=== PATIENT | female | born 1960 | race Two or more races ===

== ENCOUNTER 2022-04-30 15:51 | Inpatient (IN) | payer OTHER ==
[~2022-04-30] VITALS: Ht 162.6 cm; Wt 67.8 kg
[2022-04-30] MEDS ORDERED: SODIUM CHLORIDE 0.9% 3,000 ML IV ONE (17:00)
[2022-04-30] MEDS ORDERED: NOREPINEPHRINE 8 MG/250ML KIT 250 ML IV ONE (17:40)
[2022-04-30] MEDS ORDERED: InsuLIN R (HUMAN) 100 UNITS in SODIUM CHL 0.9% 99 ML IV SCH (18:45)
[2022-04-30] MEDS ORDERED: INSULIN LANTUS (GLARGINE) 1 /0.01ml (100units/ml) SC ONE (18:45)
[2022-04-30] MEDS ORDERED: DEXTROSE (50%) 50ML SYRG IV PRN ×3 (18:45→22:45)
[2022-04-30] MEDS ORDERED: cefTRIAXone 1GM/50ML D5W 50 ML IV ONE (18:45)
[2022-04-30 20:29] LABS: Basophils # (auto) 0 10 ^3/uL (0-0.2); Basophils % (auto) 0.2 % (0.0-2.0); Eosinophils # (auto) 0.3 10 ^3/uL (0-0.8); Hematocrit 32.6 % (36.0-46.0); Hemoglobin 11.2 g/dL (12.2-16.2); Lymphocytes # (auto) 0.5 10 ^3/uL (0.4-5.4); Mean Corpuscular Hgb Conc. 34.3 g/dL (32.0-36.0); Mean Corpuscular Volume 99.1 fL (80.0-100.0); Monocytes # (auto) 0.4 10 ^3/uL (0-1.3); Neutrophils # (auto) 4.1 10 ^3/uL (1.6-8.6); Neutrophils % (auto) 78.8 % (37.0-80.0); Red Blood Cells 3.29 10^6/uL (4.0-5.20); Red Cell Distribution Width 14.1 % (11.8-14.3); White Blood Cell 5.2 10^3/uL (4.4-10.8)
[2022-04-30] MEDS: ACCU-CHEK COMFORT CURVE STRIP VI SCH ×3 (20:33→23:54)
[2022-04-30 20:43] LABS: Albumin 1.7 g/dL (3.4-5.0); BUN/Creatinine Ratio 19.1
[2022-04-30 20:46] LABS: Bilirubin, Total 5.5 mg/dL (0.2-1.0); Total Protein 5.5 g/dL (6.4-8.2)
[2022-04-30 20:47] LABS: Lactic Acid w/Reflex 4.4 mmol/L (0.4-2.0)
[2022-04-30 20:53] LABS: Potassium 2.7 mmol/L (3.5-5.1)
[2022-04-30 22:04] LABS: Urine Bacteria NONE SEEN /hpf (None Seen); Urine Blood Negative /uL (Negative); Urine Specific Gravity 1.017 (1.001-1.035); Urine WBC 5 /hpf (0 - 5)
[2022-04-30] MEDS ORDERED: CALCIUM GLUC 1,000mg/50ml-NS 50 ML IV ONE (23:00)
[2022-04-30] MEDS ORDERED: ACETAMINOPHEN 325 MG TAB PO PRN (23:00)
[2022-04-30] MEDS ORDERED: POTASSIUM CHL 20 Meq TABLET PO ONE (23:00)
[2022-04-30] MEDS ORDERED: DOCUSATE SOD 100 MG CAP PO PRN (23:00)
[2022-04-30] MEDS ORDERED: NITROGLYCERIN 0.4 MG SL TAB SL PRN (23:00)
[2022-04-30] MEDS ORDERED: MORPHINE SULFATE INJ 2 MG/ml SYRG IV PRN (23:00)
[2022-04-30] MEDS ORDERED: HYDROcodone-ACET 5/325MG TAB PO PRN (23:00)
[2022-04-30] MEDS: NOREPINEPHRINE 8 MG/250ML KIT 250 ML IV SCH (23:04)
[2022-04-30] MEDS: SODIUM CHLORIDE 0.9% 1,000 ML IV SCH (23:08)
[2022-04-30] MEDS: POTASSIUM CHL 20MEQ/100ML 100 ML IV SCH (23:23)
[2022-04-30 23:36] LABS: Albumin 1.7 g/dL (3.4-5.0); BUN/Creatinine Ratio 20.2; Bilirubin, Total 5.3 mg/dL (0.2-1.0); Calcium 6.9 mg/dL (8.5-10.1); Total Protein 5.5 g/dL (6.4-8.2)
[2022-04-30] MEDS: ALBUMIN 25% 100 ML IV SCH (23:50)
[2022-04-30 23:51] LABS: Potassium 2.6 mmol/L (3.5-5.1)
[2022-05-01] VITALS (90 sets, daily range): BP systolic 90–133; BP diastolic 47–75
[2022-05-01] MEDS ORDERED: ACCU-CHEK COMFORT CURVE STRIP VI SCH
[2022-05-01] MEDS ORDERED: InsuLIN REG 1unit/0.01ml Soln (100units/ml) SC SCH
[2022-05-01] MEDS: InsuLIN REG 1unit/0.01ml Soln (100units/ml) SC SCH ×4 (00:47→18:00)
[2022-05-01] MEDS: POTASSIUM CHL 20MEQ/100ML 100 ML IV SCH (02:10)
[2022-05-01 05:23] LABS: Basophils # (auto) 0 10 ^3/uL (0-0.2); Basophils % (auto) 0.2 % (0.0-2.0); Eosinophils # (auto) 0.4 10 ^3/uL (0-0.8); Eosinophils % (auto) 5.7 % (0.0-7.0); Hematocrit 32.3 % (36.0-46.0); Hemoglobin 11.4 g/dL (12.2-16.2); Lymphocytes # (auto) 0.5 10 ^3/uL (0.4-5.4); Lymphocytes % (auto) 6.2 % (10.0-50.0); Mean Corpuscular Hemoglobin 34.4 pg (28.0-32.0); Mean Corpuscular Hgb Conc. 35.3 g/dL (32.0-36.0); Mean Corpuscular Volume 97.5 fL (80.0-100.0); Monocytes # (auto) 0.5 10 ^3/uL (0-1.3); Monocytes % (auto) 6.5 % (0.0-12.0); Neutrophils % (auto) 81.4 % (37.0-80.0); Nucleated Red Blood Cells % 0.1 %; Red Blood Cells 3.31 10^6/uL (4.0-5.20); Red Cell Distribution Width 14.5 % (11.8-14.3); White Blood Cell 7.3 10^3/uL (4.4-10.8)
[2022-05-01 05:42] LABS: Lactic Acid w/Reflex 3.2 mmol/L (0.4-2.0)
[2022-05-01 05:43] LABS: Potassium 3.6 mmol/L (3.5-5.1)
[2022-05-01 05:52] LABS: Albumin 2.2 g/dL (3.4-5.0); BUN/Creatinine Ratio 20.9; Bilirubin, Total 6.2 mg/dL (0.2-1.0); Calcium 7.7 mg/dL (8.5-10.1); Total Protein 5.8 g/dL (6.4-8.2)
[2022-05-01] MEDS: ACCU-CHEK COMFORT CURVE STRIP VI SCH ×3 (05:52→18:26)
[2022-05-01] MEDS: ALBUMIN 25% 100 ML IV SCH ×2 (06:04→15:00)
[2022-05-01] MEDS: ONDANSETRON HCL 4 MG/2 ML VIAL IV PRN (08:45)
[2022-05-01] MEDS ORDERED: FAMOTIDINE (10MG/ML) 2ML VL IV SCH (10:00)
[2022-05-01] MEDS ORDERED: INSULIN LANTUS (GLARGINE) 1 /0.01ml (100units/ml) SC SCH (10:00)
[2022-05-01] MEDS: cefTRIAXone 1GM/50ML D5W 50 ML IV SCH (10:06)
[2022-05-01] MEDS: SODIUM CHLORIDE 0.9% 1,000 ML IV SCH (15:35)
[2022-05-01] MEDS ORDERED: PANTOPRAZOLE 40 MG TAB PO ONE (16:15)
[2022-05-01] MEDS: NOREPINEPHRINE 8 MG/250ML KIT 250 ML IV SCH (17:45)
[2022-05-01] MEDS ORDERED: MULTIPLE VITAMIN TAB PO ONE (18:00)
[2022-05-01] MEDS ORDERED: THIAMINE HCL 100 MG TAB PO ONE (18:00)
[2022-05-01 18:51] LABS: INR 1.87 (0.9-1.15)
[2022-05-01] MEDS ORDERED: ENOXAPARIN SOD 40 MG/0.4 ML SYRINGE SC SCH (22:00)
[2022-05-02] VITALS (73 sets, daily range): BP systolic 75–146; BP diastolic 42–83
[2022-05-02] MEDS: LORazepam 2MG/ML-1ML VIAL IV PRN ×5 (01:00→22:22)
[2022-05-02] MEDS: InsuLIN REG 1unit/0.01ml Soln (100units/ml) SC SCH ×4 (01:01→18:39)
[2022-05-02] MEDS: ACCU-CHEK COMFORT CURVE STRIP VI SCH ×5 (06:00→23:29)
[2022-05-02 06:03] LABS: Hemoglobin 11.4 g/dL (12.2-16.2); Lymphocytes # (auto) 0.5 10 ^3/uL (0.4-5.4); Monocytes # (auto) 0.5 10 ^3/uL (0-1.3); Nucleated Red Blood Cells % 0.1 %
[2022-05-02 06:06] LABS: Basophils # (auto) 0 10 ^3/uL (0-0.2); Basophils % (auto) 0.2 % (0.0-2.0); Eosinophils # (auto) 0.2 10 ^3/uL (0-0.8); Eosinophils % (auto) 2.1 % (0.0-7.0); Lymphocytes % (auto) 6.2 % (10.0-50.0); Mean Corpuscular Hemoglobin 34.9 pg (28.0-32.0); Mean Corpuscular Hgb Conc. 35.6 g/dL (32.0-36.0); Mean Corpuscular Volume 98.1 fL (80.0-100.0); Monocytes % (auto) 5.6 % (0.0-12.0); Neutrophils % (auto) 85.9 % (37.0-80.0); Red Blood Cells 3.26 10^6/uL (4.0-5.20); Red Cell Distribution Width 14.6 % (11.8-14.3); White Blood Cell 8.1 10^3/uL (4.4-10.8)
[2022-05-02] MEDS: SODIUM CHLORIDE 0.9% 1,000 ML IV SCH ×3 (08:05→22:22)
[2022-05-02] MEDS ORDERED: QUEtiapine FUMARATE 25 MG TAB PO PRN (09:30)
[2022-05-02] MEDS ORDERED: VANCOMYCIN PER PHARMACY 0 MG IV SCH (09:45)
[2022-05-02] MEDS ORDERED: VANCOMYCIN 1GM/250ML 250 ML IV ONE (09:45)
[2022-05-02] MEDS ORDERED: SODIUM CHLORIDE 0.9% 1,000 ML IV ONE (10:00)
[2022-05-02] MEDS ORDERED: PANTOPRAZOLE 40 MG TAB PO SCH (10:00)
[2022-05-02] MEDS ORDERED: THIAMINE HCL 100 MG TAB PO SCH (10:00)
[2022-05-02] MEDS ORDERED: MULTIPLE VITAMIN TAB PO SCH (10:00)
[2022-05-02] MEDS ORDERED: INSULIN LANTUS (GLARGINE) 1 /0.01ml (100units/ml) SC SCH (10:00)
[2022-05-02 10:21] LABS: Albumin 2.5 g/dL (3.4-5.0); Calcium 7.9 mg/dL (8.5-10.1); Potassium 3.1 mmol/L (3.5-5.1)
[2022-05-02] MEDS: cefTRIAXone 1GM/50ML D5W 50 ML IV SCH (10:22)
[2022-05-02 10:24] LABS: BUN/Creatinine Ratio 16.7; Bilirubin, Total 6.7 mg/dL (0.2-1.0)
[2022-05-02 10:44] LABS: Basophils # (auto) 0 10 ^3/uL (0-0.2); Eosinophils # (auto) 0.2 10 ^3/uL (0-0.8); Hemoglobin 11.5 g/dL (12.2-16.2); Lymphocytes # (auto) 0.7 10 ^3/uL (0.4-5.4); Monocytes # (auto) 0.7 10 ^3/uL (0-1.3); Red Blood Cells 3.35 10^6/uL (4.0-5.20)
[2022-05-02 10:48] LABS: Basophils % (auto) 0.3 % (0.0-2.0); Hematocrit 33.2 % (36.0-46.0); Lymphocytes % (auto) 7.6 % (10.0-50.0); Mean Corpuscular Hemoglobin 34.4 pg (28.0-32.0); Mean Corpuscular Hgb Conc. 34.7 g/dL (32.0-36.0); Mean Corpuscular Volume 99.2 fL (80.0-100.0); Monocytes % (auto) 7.5 % (0.0-12.0); Neutrophils # (auto) 7.8 10 ^3/uL (1.6-8.6); Neutrophils % (auto) 82.6 % (37.0-80.0); Red Cell Distribution Width 14.5 % (11.8-14.3); White Blood Cell 9.4 10^3/uL (4.4-10.8)
[2022-05-02] MEDS: PANTOPRAZOLE 40 MG/10 ML VIAL INJ IV SCH (10:54)
[2022-05-02] MEDS: ENOXAPARIN SOD 40 MG/0.4 ML SYRINGE SC SCH (10:55)
[2022-05-02] MEDS: VANCOMYCIN 1GM/250ML 250 ML IV SCH (11:34)
[2022-05-02 11:58] LABS: % Iron Saturation 39.2 % (15-50)
[2022-05-02 12:14] LABS: Lactic Acid w/Reflex 2.5 mmol/L (0.4-2.0)
[2022-05-02] MEDS ORDERED: POTASSIUM CHL 20MEQ/100ML 100 ML IV ONE (19:15)
[2022-05-02] MEDS ORDERED: SODIUM CHLORIDE 0.9% 500 ML IV ONE (19:15)
[2022-05-03] VITALS (65 sets, daily range): BP systolic 78–160; BP diastolic 42–91
[2022-05-03] MEDS: LORazepam 2MG/ML-1ML VIAL IV PRN ×3 (00:33→18:17)
[2022-05-03] MEDS: MAGNESIUM SULFATE 1GM/100ML 100 ML IV SCH ×2 (02:31→03:42)
[2022-05-03] MEDS: VANCOMYCIN 1GM/250ML 250 ML IV SCH (05:10)
[2022-05-03 05:35] LABS: Mean Corpuscular Volume 99.3 fL (80.0-100.0)
[2022-05-03 05:37] LABS: Hematocrit 34.9 % (36.0-46.0); Hemoglobin 12.1 g/dL (12.2-16.2); Mean Corpuscular Hemoglobin 34.5 pg (28.0-32.0); Mean Corpuscular Hgb Conc. 34.8 g/dL (32.0-36.0); Red Blood Cells 3.51 10^6/uL (4.0-5.20); Red Cell Distribution Width 14.6 % (11.8-14.3); White Blood Cell 7.5 10^3/uL (4.4-10.8)
[2022-05-03 05:39] LABS: Band Neutrophils % (manual) 0; Basophils % (manual) 0 (0.0-2.0); Blast Cells 0; Metamyelocytes % 0; Myelocytes % 0; Promyelocytes % 0; Reactive Lymphocytes 0
[2022-05-03 05:55] LABS: Eosinophils % (manual) 4 (0-7); Lymphocytes % (manual) 7 (10.0-50.0); Monocytes % (manual) 9 (0-12)
[2022-05-03 06:00] LABS: Alanine Aminotransferase 26 U/L (13-56); Albumin 2.2 g/dL (3.4-5.0); Alkaline Phosphatase 94 U/L (45-117); Anion Gap 12 (5-15); Aspartate Aminotransferase 44 U/L (15-37); BUN/Creatinine Ratio 14.5; Bilirubin, Total 6.4 mg/dL (0.2-1.0); Blood Urea Nitrogen 11 mg/dL (7-18); Calcium 7.1 mg/dL (8.5-10.1); Carbon Dioxide 20 mmol/L (21-32); Chloride 107 mmol/L (98-107); GFR African American 99 mL/min; GFR Non-African American 82 mL/min; Glucose 210 mg/dL (74-106); Potassium 3.1 mmol/L (3.5-5.1); Sodium 139 mmol/L (136-145)
[2022-05-03] MEDS: ACCU-CHEK COMFORT CURVE STRIP VI SCH ×3 (06:00→18:15)
[2022-05-03] MEDS: InsuLIN REG 1unit/0.01ml Soln (100units/ml) SC SCH ×4 (06:00→17:52)
[2022-05-03] MEDS: SODIUM CHLORIDE 0.9% 1,000 ML IV SCH (07:43)
[2022-05-03] MEDS: NOREPINEPHRINE 8 MG/250ML KIT 250 ML IV SCH (07:49)
[2022-05-03] MEDS: cefTRIAXone 1GM/50ML D5W 50 ML IV SCH (09:36)
[2022-05-03] MEDS: INSULIN LANTUS (GLARGINE) 1 /0.01ml (100units/ml) SC SCH (10:00)
[2022-05-03] MEDS: ENOXAPARIN SOD 40 MG/0.4 ML SYRINGE SC SCH (10:00)
[2022-05-03] MEDS ORDERED: LACTATED RINGER'S 1,000 ML IV ONE (10:15)
[2022-05-03] MEDS: D5W/ SOD CHL 0.9%/KCL 20MEQ 1,000 ML IV SCH ×2 (10:15→17:02)
[2022-05-03] MEDS: LORazepam 2MG/ML-1ML VIAL IV SCH ×3 (11:23→22:15)
[2022-05-03] MEDS: PANTOPRAZOLE 40 MG/10 ML VIAL INJ IV SCH (11:23)
[2022-05-03] MEDS: THIAMINE 100mg/ml INJ (200mg/2ml VIAL) IV SCH (11:24)
[2022-05-03] MEDS ORDERED: FOLIC ACID 1 MG, MULTIPLE VITAMIN 10 ML, MAGNESIUM SULF SDV 50% 8 MEQ, THIAMINE INJ 100... INJ SCH ×5 (12:00)
[2022-05-03] MEDS ORDERED: CLINIMIX PER PHARMACY 0 ML IV SCH (12:00)
[2022-05-03] MEDS ORDERED: LACTULOSE 10g/15ml SOLN 473ML PR ONE (12:00)
[2022-05-03 12:54] LABS: Amphetamine Screen, Urine NEGATIVE (NEGATIVE); Barbiturate Scree,Urine NEGATIVE (NEGATIVE); Benzodiazephine Screen, Urine NEGATIVE (NEGATIVE); Cannabinoid Screen, Urine POSITIVE (NEGATIVE); Cocaine Screen, Urine NEGATIVE (NEGATIVE); Opiate Scree,Urine NEGATIVE (NEGATIVE); Phencyclidine Screen, Urine NEGATIVE (NEGATIVE)
[2022-05-03] MEDS ORDERED: phytonadione 10 MG in SODIUM CHL 0.9% 50 ML IV ONE (13:15)
[2022-05-03 13:17] LABS: Lactic Acid w/Reflex 3.5 mmol/L (0.4-2.0)
[2022-05-03] MEDS ORDERED: POTASSIUM PHOSPHATE 44 MEQ in D5W 5% 250 ML IV ONE (13:45)
[2022-05-03] MEDS ORDERED: ETOMIDATE (2MG/ML) 20ML VIAL IV ONE ×2 (19:46→20:15)
[2022-05-03] MEDS ORDERED: SUCCINYLCHOLINE CHLORIDE 20 MG/ML 10ML VIAL IV ONE ×2 (19:47→20:15)
[2022-05-03] MEDS ORDERED: fentaNYL Drip 2500mCg/250mlNS 250 ML IV ONE (19:53)
[2022-05-03] MEDS: PROPOFOL 100 ML IV SCH (20:00)
[2022-05-03] MEDS ORDERED: AMINO ACID INFUSION IN D10W 1,000 ML IV NR (20:00)
[2022-05-03] MEDS: MIDAZOLAM DRIP 50 mg/50mL 50 ML IV SCH (20:16)
[2022-05-03] MEDS: fentaNYL Drip 2500mCg/250mlNS 250 ML IV SCH (20:19)
[2022-05-04] VITALS (97 sets, daily range): BP systolic 84–118; BP diastolic 45–67
[2022-05-04] MEDS: MIDAZOLAM DRIP 50 mg/50mL 50 ML IV SCH ×2 (01:47→12:44)
[2022-05-04] MEDS: LORazepam 2MG/ML-1ML VIAL IV SCH ×4 (04:15→22:15)
[2022-05-04 05:02] LABS: Basophils # (auto) 0 10 ^3/uL (0-0.2); Basophils % (auto) 0.2 % (0.0-2.0); Eosinophils # (auto) 0.5 10 ^3/uL (0-0.8); Eosinophils % (auto) 2.8 % (0.0-7.0); Hematocrit 35.9 % (36.0-46.0); Hemoglobin 12.1 g/dL (12.2-16.2); Lymphocytes % (auto) 5.5 % (10.0-50.0); Mean Corpuscular Hemoglobin 33.8 pg (28.0-32.0); Mean Corpuscular Hgb Conc. 33.6 g/dL (32.0-36.0); Mean Corpuscular Volume 100.6 fL (80.0-100.0); Monocytes # (auto) 1.4 10 ^3/uL (0-1.3); Monocytes % (auto) 8.1 % (0.0-12.0); Neutrophils # (auto) 14.7 10 ^3/uL (1.6-8.6); Neutrophils % (auto) 83.4 % (37.0-80.0); Nucleated Red Blood Cells % 0.1 %; Red Blood Cells 3.57 10^6/uL (4.0-5.20); Red Cell Distribution Width 15.5 % (11.8-14.3); White Blood Cell 17.6 10^3/uL (4.4-10.8)
[2022-05-04 05:30] LABS: Albumin 2.1 g/dL (3.4-5.0); Calcium 7.4 mg/dL (8.5-10.1); Magnesium 1.3 mg/dL (1.6-2.6); Potassium 3.3 mmol/L (3.5-5.1)
[2022-05-04 05:33] LABS: BUN/Creatinine Ratio 11.4; Phosphorus 4.6 mg/dL (2.5-4.90); Total Protein 6.4 g/dL (6.4-8.2)
[2022-05-04] MEDS: InsuLIN REG 1unit/0.01ml Soln (100units/ml) SC SCH ×4 (06:00→18:22)
[2022-05-04] MEDS: ACCU-CHEK COMFORT CURVE STRIP VI SCH ×4 (06:16→18:22)
[2022-05-04] MEDS: NOREPINEPHRINE 8 MG/250ML KIT 250 ML IV SCH ×2 (09:19→18:23)
[2022-05-04] MEDS: cefTRIAXone 1GM/50ML D5W 50 ML IV SCH (09:21)
[2022-05-04] MEDS: ENOXAPARIN SOD 40 MG/0.4 ML SYRINGE SC SCH (09:21)
[2022-05-04] MEDS: PANTOPRAZOLE 40 MG/10 ML VIAL INJ IV SCH (09:21)
[2022-05-04] MEDS: INSULIN LANTUS (GLARGINE) 1 /0.01ml (100units/ml) SC SCH (09:40)
[2022-05-04 09:53] LABS: Lactic Acid w/Reflex 2.5 mmol/L (0.4-2.0)
[2022-05-04] MEDS: THIAMINE 100mg/ml INJ (200mg/2ml VIAL) IV SCH (10:00)
[2022-05-04] MEDS ORDERED: POTASSIUM CHL 20MEQ/100ML 100 ML IV ONE (10:00)
[2022-05-04] MEDS ORDERED: phytonadione 10 MG in SODIUM CHL 0.9% 50 ML IV ONE (10:15)
[2022-05-04] MEDS: MAGNESIUM SULFATE 1GM/100ML 100 ML IV SCH ×3 (10:21→14:00)
[2022-05-04 10:44] LABS: Hepatitis B Surface Antibody Negative (Negative)
[2022-05-04] MEDS: LACTATED RINGER'S 1,000 ML IV ONE ×2 (11:00→12:38)
[2022-05-04] MEDS ORDERED: VANCOMYCIN PER PHARMACY 0 MG IV SCH (11:00)
[2022-05-04] MEDS ORDERED: AMPICILLIN & SULBACTAM SODIUM 3 GM in SODIUM CHL 0.9% 100 ML IV SCH (11:15)
[2022-05-04] MEDS ORDERED: PIPERACILLIN-TAZO 4.5GM 100 ML IV SCH (12:00)
[2022-05-04] MEDS ORDERED: LACTATED RINGER'S 1,000 ML IV SCH (12:30)
[2022-05-04] MEDS ORDERED: LACTATED RINGER'S 1,000 ML IV ONE (12:30)
[2022-05-04 12:31] LABS: INR 1.84 (0.9-1.15); Partial Thromboplastin Time 60.4 sec (24.6-33.4)
[2022-05-04] MEDS: LACTATED RINGER'S 1,000 ML IV SCH ×2 (13:00→14:00)
[2022-05-04 13:54] LABS: Urine Bacteria NONE SEEN /hpf (None Seen); Urine Blood 3+ /uL (Negative); Urine Budding Yeast MANY /hpf (None Seen); Urine Hyaline Cast FEW /lpf (0 - 2); Urine Specific Gravity 1.024 (1.001-1.035); Urine WBC 6 /hpf (0 - 5)
[2022-05-04] MEDS ORDERED: metroNIDAZOLE 500MG/100ML 100 ML IV SCH (14:00)
[2022-05-04] MEDS ORDERED: ceFAZolin 2 GM in D5W 5% 100 ML IV SCH (14:00)
[2022-05-04] MEDS: methylPREDNISolone SOD SUCC 40 MG/ML VL IV SCH ×2 (15:22→22:00)
[2022-05-04] MEDS ORDERED: LIDOCAINE 1% (LOCAL ANESTH.) PF 5ml SDV ID ONE (15:30)
[2022-05-04] MEDS: PIPERACILLIN-TAZO 4.5GM 100 ML IV SCH ×2 (15:49→22:00)
[2022-05-04] MEDS: PROPOFOL 100 ML IV SCH (20:00)
[2022-05-04] MEDS: SODIUM CHLOR 0.9% PF (SALINE LOCK) 10ML VIAL/SYR IV SCH (22:00)
[2022-05-04] MEDS: LACTULOSE 20Gm/30ML SOLN PO SCH (22:00)
[2022-05-05] VITALS (105 sets, daily range): BP systolic 81–127; BP diastolic 45–89
[2022-05-05] MEDS: MIDAZOLAM DRIP 50 mg/50mL 50 ML IV SCH ×2 (00:23→20:35)
[2022-05-05] MEDS: LACTATED RINGER'S 1,000 ML IV SCH (00:26)
[2022-05-05] MEDS: InsuLIN REG 1unit/0.01ml Soln (100units/ml) SC SCH ×5 (01:08→23:38)
[2022-05-05] MEDS: ACCU-CHEK COMFORT CURVE STRIP VI SCH ×5 (01:08→23:37)
[2022-05-05] MEDS: PIPERACILLIN-TAZO 4.5GM 100 ML IV SCH ×2 (04:00→16:32)
[2022-05-05] MEDS: LORazepam 2MG/ML-1ML VIAL IV SCH ×2 (04:15→10:15)
[2022-05-05 04:21] LABS: Basophils # (auto) 0 10 ^3/uL (0-0.2); Eosinophils # (auto) 0 10 ^3/uL (0-0.8); Hemoglobin 11.8 g/dL (12.2-16.2); Lymphocytes # (auto) 0.5 10 ^3/uL (0.4-5.4); Monocytes # (auto) 0.2 10 ^3/uL (0-1.3); Monocytes % (auto) 2.2 % (0.0-12.0); Nucleated Red Blood Cells % 0.1 %
[2022-05-05 04:24] LABS: Basophils % (auto) 0.2 % (0.0-2.0); Hematocrit 34.4 % (36.0-46.0); Lymphocytes % (auto) 6.2 % (10.0-50.0); Mean Corpuscular Hemoglobin 34.4 pg (28.0-32.0); Mean Corpuscular Hgb Conc. 34.3 g/dL (32.0-36.0); Mean Corpuscular Volume 100.4 fL (80.0-100.0); Neutrophils # (auto) 7.1 10 ^3/uL (1.6-8.6); Neutrophils % (auto) 91.4 % (37.0-80.0); Red Blood Cells 3.43 10^6/uL (4.0-5.20); Red Cell Distribution Width 15.4 % (11.8-14.3); White Blood Cell 7.8 10^3/uL (4.4-10.8)
[2022-05-05 04:41] LABS: Albumin 1.8 g/dL (3.4-5.0); Calcium 7.3 mg/dL (8.5-10.1); Potassium 4.1 mmol/L (3.5-5.1)
[2022-05-05 04:46] LABS: Bilirubin, Direct 3.1 mg/dL (0-0.2); Bilirubin, Total 5.3 mg/dL (0.2-1.0); Total Protein 6.3 g/dL (6.4-8.2)
[2022-05-05] MEDS: methylPREDNISolone SOD SUCC 40 MG/ML VL IV SCH ×3 (06:00→21:43)
[2022-05-05] MEDS: SODIUM CHLOR 0.9% PF (SALINE LOCK) 10ML VIAL/SYR IV SCH ×2 (10:29→21:43)
[2022-05-05] MEDS: LACTULOSE 20Gm/30ML SOLN PO SCH ×2 (10:29→21:43)
[2022-05-05] MEDS: PANTOPRAZOLE 40 MG/10 ML VIAL INJ IV SCH (10:29)
[2022-05-05] MEDS: THIAMINE 100mg/ml INJ (200mg/2ml VIAL) IV SCH (10:29)
[2022-05-05] MEDS: ENOXAPARIN SOD 40 MG/0.4 ML SYRINGE SC SCH (10:30)
[2022-05-05] MEDS: INSULIN LANTUS (GLARGINE) 1 /0.01ml (100units/ml) SC SCH (10:41)
[2022-05-05] MEDS ORDERED: FUROSEMIDE 20 MG/2 ML VIAL IV ONE (11:00)
[2022-05-05] MEDS: NOREPINEPHRINE 8 MG/250ML KIT 250 ML IV SCH (16:31)
[2022-05-05] MEDS: fentaNYL Drip 2500mCg/250mlNS 250 ML IV SCH ×2 (16:34→20:00)
[2022-05-05] MEDS: PROPOFOL 100 ML IV SCH (20:00)
[2022-05-06] VITALS (100 sets, daily range): BP systolic 80–150; BP diastolic 47–83
[2022-05-06] MEDS: PIPERACILLIN-TAZO 4.5GM 100 ML IV SCH ×2 (00:55→09:12)
[2022-05-06] MEDS: MIDAZOLAM DRIP 50 mg/50mL 50 ML IV SCH (03:17)
[2022-05-06 04:45] LABS: Lactic Acid w/Reflex 2.3 mmol/L (0.4-2.0)
[2022-05-06 04:46] LABS: Potassium 4.1 mmol/L (3.5-5.1)
[2022-05-06 04:56] LABS: Albumin 1.7 g/dL (3.4-5.0); BUN/Creatinine Ratio 24.6; Bilirubin, Total 3.7 mg/dL (0.2-1.0); Calcium 7.8 mg/dL (8.5-10.1); Total Protein 5.9 g/dL (6.4-8.2)
[2022-05-06 05:33] LABS: Basophils # (auto) 0 10 ^3/uL (0-0.2); Basophils % (auto) 0.2 % (0.0-2.0); Eosinophils # (auto) 0 10 ^3/uL (0-0.8); Hematocrit 33.5 % (36.0-46.0); Hemoglobin 11.5 g/dL (12.2-16.2); Lymphocytes # (auto) 0.7 10 ^3/uL (0.4-5.4); Lymphocytes % (auto) 8.3 % (10.0-50.0); Mean Corpuscular Hemoglobin 34.7 pg (28.0-32.0); Mean Corpuscular Hgb Conc. 34.4 g/dL (32.0-36.0); Mean Corpuscular Volume 100.7 fL (80.0-100.0); Monocytes # (auto) 0.3 10 ^3/uL (0-1.3); Monocytes % (auto) 3.9 % (0.0-12.0); Neutrophils # (auto) 7.6 10 ^3/uL (1.6-8.6); Neutrophils % (auto) 87.6 % (37.0-80.0); Nucleated Red Blood Cells % 0.2 %; Red Blood Cells 3.32 10^6/uL (4.0-5.20); Red Cell Distribution Width 15.1 % (11.8-14.3); White Blood Cell 8.7 10^3/uL (4.4-10.8)
[2022-05-06] MEDS: ACCU-CHEK COMFORT CURVE STRIP VI SCH ×3 (05:40→17:47)
[2022-05-06] MEDS: InsuLIN REG 1unit/0.01ml Soln (100units/ml) SC SCH ×3 (05:42→18:08)
[2022-05-06] MEDS: methylPREDNISolone SOD SUCC 40 MG/ML VL IV SCH ×3 (05:42→21:49)
[2022-05-06] MEDS ORDERED: Glucerna 1.2 Cal 1Liter BOTTLE GT SCH (08:00)
[2022-05-06] MEDS: PANTOPRAZOLE 40 MG/10 ML VIAL INJ IV SCH (09:13)
[2022-05-06] MEDS: ENOXAPARIN SOD 40 MG/0.4 ML SYRINGE SC SCH (09:13)
[2022-05-06] MEDS: LACTULOSE 20Gm/30ML SOLN PO SCH ×4 (09:13→21:49)
[2022-05-06] MEDS: SODIUM CHLOR 0.9% PF (SALINE LOCK) 10ML VIAL/SYR IV SCH ×2 (09:13→21:48)
[2022-05-06] MEDS: THIAMINE 100mg/ml INJ (200mg/2ml VIAL) IV SCH (09:13)
[2022-05-06] MEDS ORDERED: ENOXAPARIN SOD 40 MG/0.4 ML SYRINGE SC SCH (10:00)
[2022-05-06] MEDS ORDERED: FUROSEMIDE 20 MG/2 ML VIAL IV ONE ×2 (11:30→15:00)
[2022-05-06] MEDS: PROPOFOL 100 ML IV SCH (20:00)
[2022-05-06] MEDS: fentaNYL Drip 2500mCg/250mlNS 250 ML IV SCH (20:00)
[2022-05-06] MEDS: NOREPINEPHRINE 8 MG/250ML KIT 250 ML IV SCH (21:48)
[2022-05-07] VITALS (104 sets, daily range): BP systolic 77–151; BP diastolic 44–86
[2022-05-07] MEDS: LACTULOSE 20Gm/30ML SOLN PO SCH ×6 (02:00→22:00)
[2022-05-07 04:23] LABS: Basophils # (auto) 0 10 ^3/uL (0-0.2); Basophils % (auto) 0.2 % (0.0-2.0); Eosinophils # (auto) 0 10 ^3/uL (0-0.8); Hemoglobin 11.8 g/dL (12.2-16.2); Monocytes # (auto) 0.2 10 ^3/uL (0-1.3); Nucleated Red Blood Cells % 0.2 %
[2022-05-07 04:25] LABS: Hematocrit 34.2 % (36.0-46.0); Lymphocytes # (auto) 0.5 10 ^3/uL (0.4-5.4); Lymphocytes % (auto) 10.5 % (10.0-50.0); Mean Corpuscular Hemoglobin 34.7 pg (28.0-32.0); Mean Corpuscular Hgb Conc. 34.4 g/dL (32.0-36.0); Mean Corpuscular Volume 101.1 fL (80.0-100.0); Monocytes % (auto) 4.3 % (0.0-12.0); Neutrophils # (auto) 4.4 10 ^3/uL (1.6-8.6); Red Blood Cells 3.39 10^6/uL (4.0-5.20); Red Cell Distribution Width 15.1 % (11.8-14.3); White Blood Cell 5.1 10^3/uL (4.4-10.8)
[2022-05-07 04:28] LABS: BUN/Creatinine Ratio 34.7; Calcium 7.9 mg/dL (8.5-10.1); Potassium 4.1 mmol/L (3.5-5.1)
[2022-05-07] MEDS: methylPREDNISolone SOD SUCC 40 MG/ML VL IV SCH ×3 (06:16→22:00)
[2022-05-07] MEDS: ACCU-CHEK COMFORT CURVE STRIP VI SCH ×4 (06:17→17:41)
[2022-05-07] MEDS: InsuLIN REG 1unit/0.01ml Soln (100units/ml) SC SCH ×4 (06:18→17:44)
[2022-05-07] MEDS ORDERED: INSULIN LANTUS (GLARGINE) 1 /0.01ml (100units/ml) SC ONE (09:00)
[2022-05-07] MEDS ORDERED: FUROSEMIDE 20 MG/2 ML VIAL IV SCH (10:00)
[2022-05-07] MEDS: THIAMINE 100mg/ml INJ (200mg/2ml VIAL) IV SCH (10:04)
[2022-05-07] MEDS: PANTOPRAZOLE 40 MG/10 ML VIAL INJ IV SCH (10:11)
[2022-05-07] MEDS: SODIUM CHLOR 0.9% PF (SALINE LOCK) 10ML VIAL/SYR IV SCH ×2 (10:18→22:00)
[2022-05-07] MEDS: cefTRIAXone 1GM/50ML D5W 50 ML IV SCH (10:18)
[2022-05-07] MEDS: ENOXAPARIN SOD 40 MG/0.4 ML SYRINGE SC SCH (10:42)
[2022-05-07 15:52] LABS: Hepatitis C Antibody Positive (Negative)
[2022-05-07] MEDS: MIDAZOLAM DRIP 50 mg/50mL 50 ML IV SCH (20:00)
[2022-05-07] MEDS: PROPOFOL 100 ML IV SCH (20:00)
[2022-05-07] MEDS: fentaNYL Drip 2500mCg/250mlNS 250 ML IV SCH (20:00)
[2022-05-07] MEDS: NOREPINEPHRINE 8 MG/250ML KIT 250 ML IV SCH (22:00)
[2022-05-07] MEDS: INSULIN LANTUS (GLARGINE) 1 /0.01ml (100units/ml) SC SCH (22:00)
[2022-05-08] VITALS (99 sets, daily range): BP systolic 76–161; BP diastolic 41–102
[2022-05-08] MEDS: ACCU-CHEK COMFORT CURVE STRIP VI SCH ×4 (00:01→17:20)
[2022-05-08] MEDS: InsuLIN REG 1unit/0.01ml Soln (100units/ml) SC SCH ×4 (00:20→17:14)
[2022-05-08] MEDS: LACTULOSE 20Gm/30ML SOLN PO SCH ×4 (02:00→22:00)
[2022-05-08 04:13] LABS: Basophils # (auto) 0 10 ^3/uL (0-0.2); Basophils % (auto) 0.4 % (0.0-2.0); Eosinophils # (auto) 0 10 ^3/uL (0-0.8); Hematocrit 36.7 % (36.0-46.0); Hemoglobin 12.3 g/dL (12.2-16.2); Lymphocytes # (auto) 0.7 10 ^3/uL (0.4-5.4); Lymphocytes % (auto) 9.1 % (10.0-50.0); Mean Corpuscular Hemoglobin 34.1 pg (28.0-32.0); Mean Corpuscular Hgb Conc. 33.5 g/dL (32.0-36.0); Mean Corpuscular Volume 101.8 fL (80.0-100.0); Monocytes # (auto) 0.4 10 ^3/uL (0-1.3); Monocytes % (auto) 5.7 % (0.0-12.0); Neutrophils # (auto) 6.3 10 ^3/uL (1.6-8.6); Neutrophils % (auto) 84.8 % (37.0-80.0); Nucleated Red Blood Cells % 0.1 %; Red Blood Cells 3.61 10^6/uL (4.0-5.20); Red Cell Distribution Width 15.5 % (11.8-14.3); White Blood Cell 7.4 10^3/uL (4.4-10.8)
[2022-05-08] MEDS: methylPREDNISolone SOD SUCC 40 MG/ML VL IV SCH (06:00)
[2022-05-08] MEDS: INSULIN LANTUS (GLARGINE) 1 /0.01ml (100units/ml) SC SCH ×2 (06:59→22:46)
[2022-05-08] MEDS ORDERED: INSULIN LANTUS (GLARGINE) 1 /0.01ml (100units/ml) SC SCH (07:00)
[2022-05-08] MEDS: cefTRIAXone 1GM/50ML D5W 50 ML IV SCH (09:27)
[2022-05-08] MEDS: ENOXAPARIN SOD 40 MG/0.4 ML SYRINGE SC SCH (09:28)
[2022-05-08] MEDS: THIAMINE 100mg/ml INJ (200mg/2ml VIAL) IV SCH (09:30)
[2022-05-08] MEDS: SODIUM CHLOR 0.9% PF (SALINE LOCK) 10ML VIAL/SYR IV SCH ×2 (09:33→22:44)
[2022-05-08] MEDS: PANTOPRAZOLE 40 MG/10 ML VIAL INJ IV SCH (09:34)
[2022-05-08 09:44] LABS: Albumin 1.7 g/dL (3.4-5.0); Calcium 8.3 mg/dL (8.5-10.1); Potassium 4.6 mmol/L (3.5-5.1)
[2022-05-08 09:48] LABS: BUN/Creatinine Ratio 39.4; Bilirubin, Total 2.9 mg/dL (0.2-1.0); Total Protein 6.1 g/dL (6.4-8.2)
[2022-05-08] MEDS ORDERED: CLINIMIX PER PHARMACY 0 ML IV SCH (14:15)
[2022-05-08] MEDS ORDERED: ceFAZolin 1GM/50ML 50 ML IV ONE (14:15)
[2022-05-08] MEDS: NOREPINEPHRINE 8 MG/250ML KIT 250 ML IV SCH (15:10)
[2022-05-08] MEDS ORDERED: MAGNESIUM SULFATE 1GM/100ML 100 ML IV ONE (16:30)
[2022-05-08] MEDS: FREE WATER GT SCH (17:13)
[2022-05-08] MEDS: AMINO ACID INFUSION IN D10W 1,000 ML IV NR (20:01)
[2022-05-08] MEDS ORDERED: methylPREDNISolone SOD SUCC 40 MG/ML VL IV SCH (22:00)
[2022-05-08] MEDS: ceFAZolin 1GM/50ML 50 ML IV SCH (22:44)
[2022-05-09] VITALS (107 sets, daily range): BP systolic 82–160; BP diastolic 44–88
[2022-05-09] MEDS: ACCU-CHEK COMFORT CURVE STRIP VI SCH ×5 (00:23→23:47)
[2022-05-09] MEDS: FREE WATER GT SCH ×5 (00:23→23:48)
[2022-05-09] MEDS: InsuLIN REG 1unit/0.01ml Soln (100units/ml) SC SCH ×5 (00:24→23:49)
[2022-05-09 04:13] LABS: Albumin 1.5 g/dL (3.4-5.0); BUN/Creatinine Ratio 44.9; Calcium 7.7 mg/dL (8.5-10.1); Magnesium 1.8 mg/dL (1.6-2.6)
[2022-05-09 04:15] LABS: Bilirubin, Total 2.3 mg/dL (0.2-1.0); Phosphorus 2.8 mg/dL (2.5-4.90); Total Protein 5.3 g/dL (6.4-8.2)
[2022-05-09 04:35] LABS: Basophils # (auto) 0 10 ^3/uL (0-0.2); Eosinophils # (auto) 0 10 ^3/uL (0-0.8); Eosinophils % (auto) 0.1 % (0.0-7.0); Hemoglobin 10.3 g/dL (12.2-16.2); Lymphocytes # (auto) 0.4 10 ^3/uL (0.4-5.4); Monocytes # (auto) 0.2 10 ^3/uL (0-1.3)
[2022-05-09 04:37] LABS: Basophils % (auto) 0.4 % (0.0-2.0); Hematocrit 30.7 % (36.0-46.0); Lymphocytes % (auto) 13.5 % (10.0-50.0); Mean Corpuscular Hemoglobin 34.9 pg (28.0-32.0); Mean Corpuscular Hgb Conc. 33.6 g/dL (32.0-36.0); Mean Corpuscular Volume 104.1 fL (80.0-100.0); Monocytes % (auto) 6.2 % (0.0-12.0); Neutrophils # (auto) 2.4 10 ^3/uL (1.6-8.6); Neutrophils % (auto) 79.8 % (37.0-80.0); Nucleated Red Blood Cells % 0.4 %; Red Blood Cells 2.95 10^6/uL (4.0-5.20); Red Cell Distribution Width 15.5 % (11.8-14.3)
[2022-05-09] MEDS: ceFAZolin 1GM/50ML 50 ML IV SCH ×3 (06:00→21:55)
[2022-05-09] MEDS: INSULIN LANTUS (GLARGINE) 1 /0.01ml (100units/ml) SC SCH ×2 (06:37→22:06)
[2022-05-09] MEDS: MIDAZOLAM DRIP 50 mg/50mL 50 ML IV SCH ×2 (09:35→20:00)
[2022-05-09] MEDS: PROPOFOL 100 ML IV SCH ×2 (09:35→20:00)
[2022-05-09] MEDS: fentaNYL Drip 2500mCg/250mlNS 250 ML IV SCH ×2 (09:35→20:00)
[2022-05-09] MEDS: ENOXAPARIN SOD 40 MG/0.4 ML SYRINGE SC SCH (09:40)
[2022-05-09] MEDS: LACTULOSE 20Gm/30ML SOLN PO SCH ×2 (09:40→21:55)
[2022-05-09] MEDS: PANTOPRAZOLE 40 MG/10 ML VIAL INJ IV SCH (09:40)
[2022-05-09] MEDS: THIAMINE 100mg/ml INJ (200mg/2ml VIAL) IV SCH (09:41)
[2022-05-09] MEDS: SODIUM CHLOR 0.9% PF (SALINE LOCK) 10ML VIAL/SYR IV SCH ×2 (09:41→21:55)
[2022-05-09] MEDS: methylPREDNISolone SOD SUCC 40 MG/ML VL IV SCH (09:41)
[2022-05-09] MEDS: NOREPINEPHRINE 8 MG/250ML KIT 250 ML IV SCH (13:46)
[2022-05-09] MEDS: AMINO ACID INFUSION IN D10W 1,000 ML IV NR (21:57)
[2022-05-10] VITALS (100 sets, daily range): BP systolic 67–171; BP diastolic 37–113
[2022-05-10] MEDS: ONDANSETRON HCL 4 MG/2 ML VIAL IV PRN (02:36)
[2022-05-10] MEDS: fentaNYL Drip 2500mCg/250mlNS 250 ML IV SCH (02:57)
[2022-05-10 04:43] LABS: Basophils # (auto) 0 10 ^3/uL (0-0.2); Basophils % (auto) 0.4 % (0.0-2.0); Eosinophils # (auto) 0 10 ^3/uL (0-0.8); Eosinophils % (auto) 0.5 % (0.0-7.0); Hemoglobin 10.8 g/dL (12.2-16.2); Lymphocytes # (auto) 0.4 10 ^3/uL (0.4-5.4); Mean Corpuscular Hemoglobin 35.4 pg (28.0-32.0); Monocytes # (auto) 0.2 10 ^3/uL (0-1.3); Nucleated Red Blood Cells % 0.2 %; Red Blood Cells 3.04 10^6/uL (4.0-5.20)
[2022-05-10 04:45] LABS: Hematocrit 31.3 % (36.0-46.0); Lymphocytes % (auto) 10.6 % (10.0-50.0); Mean Corpuscular Hgb Conc. 34.4 g/dL (32.0-36.0); Mean Corpuscular Volume 102.8 fL (80.0-100.0); Monocytes % (auto) 5.5 % (0.0-12.0); Neutrophils # (auto) 2.9 10 ^3/uL (1.6-8.6); Red Cell Distribution Width 14.2 % (11.8-14.3); White Blood Cell 3.5 10^3/uL (4.4-10.8)
[2022-05-10 04:53] LABS: Albumin 1.6 g/dL (3.4-5.0); BUN/Creatinine Ratio 47.5; Calcium 7.6 mg/dL (8.5-10.1); Magnesium 1.7 mg/dL (1.6-2.6)
[2022-05-10 04:55] LABS: Bilirubin, Total 2.4 mg/dL (0.2-1.0); Phosphorus 2.8 mg/dL (2.5-4.90); Total Protein 5.4 g/dL (6.4-8.2)
[2022-05-10] MEDS: ceFAZolin 1GM/50ML 50 ML IV SCH ×3 (06:01→21:46)
[2022-05-10] MEDS: ACCU-CHEK COMFORT CURVE STRIP VI SCH ×3 (06:03→18:00)
[2022-05-10] MEDS: FREE WATER GT SCH ×4 (06:03→23:55)
[2022-05-10] MEDS: InsuLIN REG 1unit/0.01ml Soln (100units/ml) SC SCH ×3 (06:08→18:00)
[2022-05-10] MEDS: INSULIN LANTUS (GLARGINE) 1 /0.01ml (100units/ml) SC SCH ×2 (06:09→21:58)
[2022-05-10] MEDS: LACTULOSE 20Gm/30ML SOLN PO SCH ×2 (09:39→21:47)
[2022-05-10] MEDS: methylPREDNISolone SOD SUCC 40 MG/ML VL IV SCH (09:39)
[2022-05-10] MEDS: SODIUM CHLOR 0.9% PF (SALINE LOCK) 10ML VIAL/SYR IV SCH ×2 (09:39→21:46)
[2022-05-10] MEDS: PANTOPRAZOLE 40 MG/10 ML VIAL INJ IV SCH (09:39)
[2022-05-10] MEDS: THIAMINE 100mg/ml INJ (200mg/2ml VIAL) IV SCH (09:40)
[2022-05-10] MEDS: ENOXAPARIN SOD 40 MG/0.4 ML SYRINGE SC SCH (09:40)
[2022-05-10] MEDS: FLUCONAZOLE 200MG/100ML 100 ML IV SCH (12:56)
[2022-05-10] MEDS ORDERED: MAGNESIUM SULFATE 1GM/100ML 100 ML IV ONE (13:30)
[2022-05-10] MEDS: NOREPINEPHRINE 8 MG/250ML KIT 250 ML IV SCH (17:45)
[2022-05-10] MEDS ORDERED: NOREPINEPHRINE 8 MG/250ML KIT 250 ML IV SCH (19:45)
[2022-05-10] MEDS ORDERED: AMINO ACID INFUSION IN D10W 1,000 ML IV NR (20:00)
[2022-05-10] MEDS: MIDAZOLAM DRIP 50 mg/50mL 50 ML IV SCH (20:00)
[2022-05-10] MEDS: PROPOFOL 100 ML IV SCH (20:00)
[2022-05-10] MEDS: chlordiazePOXIDE HCL 25 MG CAP PO PRN (21:47)
[2022-05-10] MEDS: LORazepam 2MG/ML-1ML VIAL IV PRN (23:54)
[2022-05-11] VITALS (33 sets, daily range): BP systolic 125–151; BP diastolic 63–82
[2022-05-11] MEDS: ACCU-CHEK COMFORT CURVE STRIP VI SCH ×5 (00:04→23:49)
[2022-05-11] MEDS: InsuLIN REG 1unit/0.01ml Soln (100units/ml) SC SCH ×5 (00:07→23:49)
[2022-05-11 03:32] LABS: Basophils # (auto) 0 10 ^3/uL (0-0.2); Eosinophils # (auto) 0 10 ^3/uL (0-0.8); Eosinophils % (auto) 0.1 % (0.0-7.0); Lymphocytes # (auto) 0.3 10 ^3/uL (0.4-5.4); Monocytes # (auto) 0.3 10 ^3/uL (0-1.3); White Blood Cell 7.4 10^3/uL (4.4-10.8)
[2022-05-11 03:33] LABS: Hematocrit 33.9 % (36.0-46.0); Lymphocytes % (auto) 4.3 % (10.0-50.0); Mean Corpuscular Hemoglobin 34.9 pg (28.0-32.0); Mean Corpuscular Hgb Conc. 32.6 g/dL (32.0-36.0); Monocytes % (auto) 4.6 % (0.0-12.0); Neutrophils # (auto) 6.7 10 ^3/uL (1.6-8.6); Red Blood Cells 3.17 10^6/uL (4.0-5.20); Red Cell Distribution Width 15.4 % (11.8-14.3)
[2022-05-11] MEDS: LORazepam 2MG/ML-1ML VIAL IV PRN (03:56)
[2022-05-11] MEDS: FREE WATER GT SCH (05:18)
[2022-05-11 05:41] LABS: Albumin 1.8 g/dL (3.4-5.0); BUN/Creatinine Ratio 43.1; Calcium 7.8 mg/dL (8.5-10.1); Magnesium 1.6 mg/dL (1.6-2.6); Phosphorus 2.5 mg/dL (2.5-4.90); Potassium 3.8 mmol/L (3.5-5.1)
[2022-05-11] MEDS: ceFAZolin 1GM/50ML 50 ML IV SCH ×3 (06:30→20:50)
[2022-05-11] MEDS: INSULIN LANTUS (GLARGINE) 1 /0.01ml (100units/ml) SC SCH ×2 (06:37→21:33)
[2022-05-11] MEDS: methylPREDNISolone SOD SUCC 40 MG/ML VL IV SCH (09:18)
[2022-05-11] MEDS: FLUCONAZOLE 200MG/100ML 100 ML IV SCH (09:18)
[2022-05-11] MEDS: PANTOPRAZOLE 40 MG/10 ML VIAL INJ IV SCH (09:19)
[2022-05-11] MEDS: ENOXAPARIN SOD 40 MG/0.4 ML SYRINGE SC SCH (09:20)
[2022-05-11] MEDS: SODIUM CHLOR 0.9% PF (SALINE LOCK) 10ML VIAL/SYR IV SCH ×2 (09:20→20:49)
[2022-05-11] MEDS: LACTULOSE 20Gm/30ML SOLN PO SCH ×2 (10:02→20:49)
[2022-05-11] MEDS ORDERED: DEXTROSE (50%) 50ML SYRG IV PRN (12:15)
[2022-05-11] MEDS ORDERED: LORazepam 2MG/ML-1ML VIAL IV PRN (12:15)
[2022-05-11] MEDS: chlordiazePOXIDE HCL 25 MG CAP PO PRN ×2 (12:27→20:56)
[2022-05-12 03:18] VITALS: BP 122/65
[2022-05-12 03:54] LABS: Basophils # (auto) 0 10 ^3/uL (0-0.2); Eosinophils # (auto) 0 10 ^3/uL (0-0.8); Eosinophils % (auto) 0.3 % (0.0-7.0); Hemoglobin 14.9 g/dL (12.2-16.2); Monocytes # (auto) 0.3 10 ^3/uL (0-1.3)
[2022-05-12 03:57] LABS: Basophils % (auto) 0.1 % (0.0-2.0); Hematocrit 44.3 % (36.0-46.0); Lymphocytes # (auto) 0.4 10 ^3/uL (0.4-5.4); Lymphocytes % (auto) 6.5 % (10.0-50.0); Mean Corpuscular Hemoglobin 35.9 pg (28.0-32.0); Mean Corpuscular Hgb Conc. 33.6 g/dL (32.0-36.0); Mean Corpuscular Volume 106.8 fL (80.0-100.0); Monocytes % (auto) 4.9 % (0.0-12.0); Neutrophils # (auto) 5.6 10 ^3/uL (1.6-8.6); Neutrophils % (auto) 88.2 % (37.0-80.0); Nucleated Red Blood Cells % 0.2 %; Red Blood Cells 4.14 10^6/uL (4.0-5.20); Red Cell Distribution Width 15.3 % (11.8-14.3); White Blood Cell 6.3 10^3/uL (4.4-10.8)
[2022-05-12 04:15] LABS: Alanine Aminotransferase 43 U/L (13-56); Albumin 2.2 g/dL (3.4-5.0); Anion Gap 8 (5-15); Aspartate Aminotransferase 82 U/L (15-37); BUN/Creatinine Ratio 23.5; Blood Urea Nitrogen 16 mg/dL (7-18); Calcium 8.3 mg/dL (8.5-10.1); Carbon Dioxide 22 mmol/L (21-32); Chloride 108 mmol/L (98-107); GFR African American 113 mL/min; GFR Non-African American 93 mL/min; Glucose 240 mg/dL (74-106); Magnesium 1.6 mg/dL (1.6-2.6); Potassium 4.6 mmol/L (3.5-5.1); Sodium 138 mmol/L (136-145)
[2022-05-12 04:18] LABS: Alkaline Phosphatase 133 U/L (45-117); Bilirubin, Total 4.6 mg/dL (0.2-1.0); Phosphorus 2.3 mg/dL (2.5-4.90); Total Protein 7.5 g/dL (6.4-8.2)
[2022-05-12] MEDS: InsuLIN REG 1unit/0.01ml Soln (100units/ml) SC SCH ×2 (06:00→12:06)
[2022-05-12] MEDS: ceFAZolin 1GM/50ML 50 ML IV SCH ×3 (06:00→21:59)
[2022-05-12] MEDS: ACCU-CHEK COMFORT CURVE STRIP VI SCH ×5 (06:00→22:00)
[2022-05-12] MEDS: INSULIN LANTUS (GLARGINE) 1 /0.01ml (100units/ml) SC SCH ×2 (07:11→22:00)
[2022-05-12 08:00] VITALS: BP 159/82
[2022-05-12 09:00] VITALS: BP 149/84
[2022-05-12] MEDS ORDERED: predniSONE 20 MG TAB PO SCH (10:00)
[2022-05-12] MEDS: FLUCONAZOLE 200MG/100ML 100 ML IV SCH (10:11)
[2022-05-12] MEDS: SODIUM CHLOR 0.9% PF (SALINE LOCK) 10ML VIAL/SYR IV SCH ×2 (10:12→22:00)
[2022-05-12] MEDS: LACTULOSE 20Gm/30ML SOLN PO SCH ×2 (10:12→18:17)
[2022-05-12] MEDS: PANTOPRAZOLE 40 MG/10 ML VIAL INJ IV SCH (10:12)
[2022-05-12] MEDS: chlordiazePOXIDE HCL 25 MG CAP PO PRN ×2 (11:49→21:59)
[2022-05-12] MEDS ORDERED: SODIUM PHOSP 20MEQ(15MMOL) IN NS 100 ML IV ONE (12:00)
[2022-05-12 13:00] VITALS: BP 147/64
[2022-05-12] MEDS: MAGNESIUM SULFATE 1GM/100ML 100 ML IV SCH ×2 (15:54→15:58)
[2022-05-12 17:00] VITALS: BP 133/55
[2022-05-12] MEDS: INSULIN LISPRO (HUMAN) 100 UNITS/ML ML SC SCH ×2 (18:15→18:16)
[2022-05-12 22:00] VITALS: BP 139/63
[2022-05-12] MEDS ORDERED: INSULIN LISPRO (HUMAN) 100 UNITS/ML ML SC SCH (22:00)
[2022-05-13 05:00] VITALS: BP 143/71
[2022-05-13] MEDS: ceFAZolin 1GM/50ML 50 ML IV SCH ×3 (05:55→22:05)
[2022-05-13] MEDS: ACCU-CHEK COMFORT CURVE STRIP VI SCH ×3 (06:00→18:03)
[2022-05-13] MEDS: INSULIN LANTUS (GLARGINE) 1 /0.01ml (100units/ml) SC SCH ×2 (06:00→22:06)
[2022-05-13] MEDS: INSULIN LISPRO (HUMAN) 100 UNITS/ML ML SC SCH ×2 (06:01)
[2022-05-13 09:00] VITALS: BP 140/70
[2022-05-13] MEDS: SODIUM CHLOR 0.9% PF (SALINE LOCK) 10ML VIAL/SYR IV SCH ×2 (10:00→22:05)
[2022-05-13] MEDS: methylPREDNISolone SOD SUCC 40 MG/ML VL IV SCH (10:20)
[2022-05-13] MEDS ORDERED: DEXTROSE (50%) 50ML SYRG IV PRN (10:30)
[2022-05-13] MEDS: LACTULOSE 20Gm/30ML SOLN PO SCH (11:50)
[2022-05-13] MEDS: THIAMINE HCL 100 MG TAB PO SCH (11:50)
[2022-05-13] MEDS: InsuLIN REG 1unit/0.01ml Soln (100units/ml) SC SCH ×2 (12:00→18:03)
[2022-05-13 13:00] VITALS: BP 96/64
[2022-05-13 13:35] LABS: Albumin 1.9 g/dL (3.4-5.0); Calcium 7.9 mg/dL (8.5-10.1); Potassium 4.4 mmol/L (3.5-5.1)
[2022-05-13 13:38] LABS: Bilirubin, Total 4.6 mg/dL (0.2-1.0); Total Protein 6.1 g/dL (6.4-8.2)
[2022-05-13 17:00] VITALS: BP 154/67
[2022-05-13] MEDS: chlordiazePOXIDE HCL 25 MG CAP PO PRN (19:33)
[2022-05-13 22:00] VITALS: BP 91/53
[2022-05-14] MEDS: ACCU-CHEK COMFORT CURVE STRIP VI SCH ×4 (00:03→17:35)
[2022-05-14] MEDS: InsuLIN REG 1unit/0.01ml Soln (100units/ml) SC SCH ×4 (00:05→17:52)
[2022-05-14 04:53] LABS: Basophils # (auto) 0 10 ^3/uL (0-0.2); Eosinophils # (auto) 0 10 ^3/uL (0-0.8); Hematocrit 33.8 % (36.0-46.0); Nucleated Red Blood Cells % 0.1 %
[2022-05-14 04:57] LABS: Basophils % (auto) 0.3 % (0.0-2.0); Eosinophils % (auto) 0.2 % (0.0-7.0); Hemoglobin 11.4 g/dL (12.2-16.2); Lymphocytes # (auto) 0.5 10 ^3/uL (0.4-5.4); Mean Corpuscular Hemoglobin 35.3 pg (28.0-32.0); Mean Corpuscular Hgb Conc. 33.8 g/dL (32.0-36.0); Mean Corpuscular Volume 104.4 fL (80.0-100.0); Monocytes # (auto) 0.6 10 ^3/uL (0-1.3); Monocytes % (auto) 8.4 % (0.0-12.0); Neutrophils # (auto) 6.4 10 ^3/uL (1.6-8.6); Neutrophils % (auto) 84.1 % (37.0-80.0); Red Blood Cells 3.23 10^6/uL (4.0-5.20); Red Cell Distribution Width 15.8 % (11.8-14.3); White Blood Cell 7.6 10^3/uL (4.4-10.8)
[2022-05-14 05:00] VITALS: BP 115/57
[2022-05-14 05:13] LABS: Albumin 1.7 g/dL (3.4-5.0); Calcium 7.9 mg/dL (8.5-10.1); Potassium 4.4 mmol/L (3.5-5.1)
[2022-05-14 05:18] LABS: Total Protein 5.4 g/dL (6.4-8.2)
[2022-05-14] MEDS: ceFAZolin 1GM/50ML 50 ML IV SCH ×3 (06:06→22:10)
[2022-05-14] MEDS: INSULIN LANTUS (GLARGINE) 1 /0.01ml (100units/ml) SC SCH ×2 (06:41→22:12)
[2022-05-14 09:00] VITALS: BP 98/52
[2022-05-14] MEDS: methylPREDNISolone SOD SUCC 40 MG/ML VL IV SCH (10:01)
[2022-05-14] MEDS: LACTULOSE 20Gm/30ML SOLN PO SCH (10:01)
[2022-05-14] MEDS: PANTOPRAZOLE 40 MG TAB PO SCH (10:02)
[2022-05-14] MEDS: THIAMINE HCL 100 MG TAB PO SCH (10:02)
[2022-05-14] MEDS: SODIUM CHLOR 0.9% PF (SALINE LOCK) 10ML VIAL/SYR IV SCH ×2 (10:25→22:10)
[2022-05-14 13:00] VITALS: BP 110/54
[2022-05-14 17:00] VITALS: BP 100/62
[2022-05-14] MEDS: ACETAMINOPHEN 325 MG TAB PO PRN (17:36)
[2022-05-14] MEDS: chlordiazePOXIDE HCL 25 MG CAP PO PRN (17:36)
[2022-05-14 22:00] VITALS: BP 100/54
[2022-05-15] MEDS: ACCU-CHEK COMFORT CURVE STRIP VI SCH ×5 (00:13→22:13)
[2022-05-15] MEDS: InsuLIN REG 1unit/0.01ml Soln (100units/ml) SC SCH ×4 (00:15→17:42)
[2022-05-15 05:00] VITALS: BP 99/52
[2022-05-15 05:08] LABS: Basophils # (auto) 0 10 ^3/uL (0-0.2); Eosinophils # (auto) 0 10 ^3/uL (0-0.8); Eosinophils % (auto) 0.1 % (0.0-7.0); Lymphocytes # (auto) 0.6 10 ^3/uL (0.4-5.4); Red Cell Distribution Width 17.3 % (11.8-14.3)
[2022-05-15 05:13] LABS: Basophils % (auto) 0.2 % (0.0-2.0); Hematocrit 35.3 % (36.0-46.0); Lymphocytes % (auto) 5.7 % (10.0-50.0); Mean Corpuscular Hemoglobin 35.5 pg (28.0-32.0); Mean Corpuscular Volume 104.3 fL (80.0-100.0); Monocytes # (auto) 0.7 10 ^3/uL (0-1.3); Monocytes % (auto) 6.8 % (0.0-12.0); Neutrophils # (auto) 8.5 10 ^3/uL (1.6-8.6); Neutrophils % (auto) 87.2 % (37.0-80.0); Red Blood Cells 3.38 10^6/uL (4.0-5.20); White Blood Cell 9.7 10^3/uL (4.4-10.8)
[2022-05-15 05:31] LABS: Potassium 4.2 mmol/L (3.5-5.1)
[2022-05-15 05:37] LABS: Albumin 1.8 g/dL (3.4-5.0); BUN/Creatinine Ratio 29.3; Bilirubin, Total 3.1 mg/dL (0.2-1.0); Calcium 7.9 mg/dL (8.5-10.1); Total Protein 5.9 g/dL (6.4-8.2)
[2022-05-15] MEDS: ceFAZolin 1GM/50ML 50 ML IV SCH ×3 (06:06→22:12)
[2022-05-15] MEDS: INSULIN LANTUS (GLARGINE) 1 /0.01ml (100units/ml) SC SCH ×2 (06:57→22:18)
[2022-05-15 09:00] VITALS: BP 104/58
[2022-05-15] MEDS: SODIUM CHLOR 0.9% PF (SALINE LOCK) 10ML VIAL/SYR IV SCH ×2 (10:00→22:19)
[2022-05-15] MEDS: LACTULOSE 20Gm/30ML SOLN PO SCH (10:52)
[2022-05-15] MEDS: methylPREDNISolone SOD SUCC 40 MG/ML VL IV SCH (10:52)
[2022-05-15] MEDS: PANTOPRAZOLE 40 MG TAB PO SCH (10:55)
[2022-05-15] MEDS: ACETAMINOPHEN 325 MG TAB PO PRN (10:55)
[2022-05-15] MEDS: THIAMINE HCL 100 MG TAB PO SCH (10:55)
[2022-05-15 13:00] VITALS: BP 110/66
[2022-05-15] MEDS: HYDROcodone-ACET 7.5/325MG TAB PO PRN ×2 (13:45→23:33)
[2022-05-15 17:00] VITALS: BP 96/49
[2022-05-15 22:00] VITALS: BP 102/63
[2022-05-15] MEDS: chlordiazePOXIDE HCL 25 MG CAP PO PRN (23:33)
[2022-05-16] MEDS: InsuLIN REG 1unit/0.01ml Soln (100units/ml) SC SCH ×5 (00:09→23:18)
[2022-05-16 05:29] VITALS: BP 114/62
[2022-05-16] MEDS: ceFAZolin 1GM/50ML 50 ML IV SCH ×3 (05:52→22:50)
[2022-05-16] MEDS: ACCU-CHEK COMFORT CURVE STRIP VI SCH ×3 (05:52→18:00)
[2022-05-16] MEDS: INSULIN LANTUS (GLARGINE) 1 /0.01ml (100units/ml) SC SCH ×2 (06:14→23:18)
[2022-05-16] MEDS: HYDROcodone-ACET 7.5/325MG TAB PO PRN (06:17)
[2022-05-16] MEDS: chlordiazePOXIDE HCL 25 MG CAP PO PRN ×2 (06:17→22:42)
[2022-05-16 06:37] LABS: Basophils # (auto) 0 10 ^3/uL (0-0.2); Eosinophils # (auto) 0 10 ^3/uL (0-0.8); Eosinophils % (auto) 0.1 % (0.0-7.0); Lymphocytes # (auto) 0.6 10 ^3/uL (0.4-5.4); Mean Corpuscular Hemoglobin 35.4 pg (28.0-32.0); Monocytes # (auto) 0.7 10 ^3/uL (0-1.3)
[2022-05-16 06:40] LABS: Basophils % (auto) 0.3 % (0.0-2.0); Hematocrit 35.6 % (36.0-46.0); Hemoglobin 12.2 g/dL (12.2-16.2); Mean Corpuscular Hgb Conc. 34.2 g/dL (32.0-36.0); Mean Corpuscular Volume 103.5 fL (80.0-100.0); Neutrophils # (auto) 8.5 10 ^3/uL (1.6-8.6); Neutrophils % (auto) 86.6 % (37.0-80.0); Red Blood Cells 3.44 10^6/uL (4.0-5.20); Red Cell Distribution Width 16.7 % (11.8-14.3); White Blood Cell 9.9 10^3/uL (4.4-10.8)
[2022-05-16 06:59] LABS: Potassium 4.4 mmol/L (3.5-5.1)
[2022-05-16] MEDS ORDERED: INSULIN LANTUS (GLARGINE) 1 /0.01ml (100units/ml) SC SCH (07:00)
[2022-05-16 07:06] LABS: Albumin 1.9 g/dL (3.4-5.0); BUN/Creatinine Ratio 30.4
[2022-05-16 09:00] VITALS: BP 110/62
[2022-05-16] MEDS: SODIUM CHLOR 0.9% PF (SALINE LOCK) 10ML VIAL/SYR IV SCH ×2 (10:00→23:19)
[2022-05-16 13:00] VITALS: BP 114/60
[2022-05-16] MEDS: predniSONE 20 MG TAB PO SCH (14:34)
[2022-05-16] MEDS: THIAMINE HCL 100 MG TAB PO SCH (14:34)
[2022-05-16] MEDS: PANTOPRAZOLE 40 MG TAB PO SCH (14:34)
[2022-05-16] MEDS: LACTULOSE 20Gm/30ML SOLN PO SCH (14:34)
[2022-05-16 17:00] VITALS: BP 121/67
[2022-05-16 21:21] VITALS: BP 117/66
[2022-05-17] MEDS: ACCU-CHEK COMFORT CURVE STRIP VI SCH ×4 (05:30→18:00)
[2022-05-17] MEDS: InsuLIN REG 1unit/0.01ml Soln (100units/ml) SC SCH ×3 (05:32→19:37)
[2022-05-17] MEDS: ceFAZolin 1GM/50ML 50 ML IV SCH ×3 (05:34→23:00)
[2022-05-17 05:43] VITALS: BP 106/62
[2022-05-17] MEDS: INSULIN LANTUS (GLARGINE) 1 /0.01ml (100units/ml) SC SCH ×2 (06:50→22:00)
[2022-05-17 09:00] VITALS: BP 126/64
[2022-05-17 09:51] LABS: Basophils # (auto) 0 10 ^3/uL (0-0.2); Basophils % (auto) 0.4 % (0.0-2.0); Eosinophils # (auto) 0.2 10 ^3/uL (0-0.8); Eosinophils % (auto) 2.2 % (0.0-7.0); Hematocrit 38.1 % (36.0-46.0); Lymphocytes # (auto) 1.2 10 ^3/uL (0.4-5.4); Lymphocytes % (auto) 11.6 % (10.0-50.0); Mean Corpuscular Hemoglobin 35.8 pg (28.0-32.0); Mean Corpuscular Hgb Conc. 34.2 g/dL (32.0-36.0); Mean Corpuscular Volume 104.7 fL (80.0-100.0); Monocytes # (auto) 0.7 10 ^3/uL (0-1.3); Monocytes % (auto) 6.9 % (0.0-12.0); Neutrophils % (auto) 78.9 % (37.0-80.0); Nucleated Red Blood Cells % 0.1 %; Red Blood Cells 3.64 10^6/uL (4.0-5.20); Red Cell Distribution Width 19.5 % (11.8-14.3); White Blood Cell 10.1 10^3/uL (4.4-10.8)
[2022-05-17] MEDS: SODIUM CHLOR 0.9% PF (SALINE LOCK) 10ML VIAL/SYR IV SCH ×2 (10:00→22:00)
[2022-05-17 10:07] LABS: Albumin 1.9 g/dL (3.4-5.0); Calcium 7.7 mg/dL (8.5-10.1); Potassium 3.8 mmol/L (3.5-5.1)
[2022-05-17 10:11] LABS: BUN/Creatinine Ratio 31.1; Total Protein 6.2 g/dL (6.4-8.2)
[2022-05-17 13:00] VITALS: BP 121/74
[2022-05-17] MEDS: THIAMINE HCL 100 MG TAB PO SCH (13:20)
[2022-05-17] MEDS: predniSONE 20 MG TAB PO SCH (13:20)
[2022-05-17] MEDS: PANTOPRAZOLE 40 MG TAB PO SCH (13:20)
[2022-05-17] MEDS: LACTULOSE 20Gm/30ML SOLN PO SCH (13:22)
[2022-05-17 17:00] VITALS: BP 129/65
[2022-05-17 22:00] VITALS: BP 116/65
[2022-05-17] MEDS: HYDROcodone-ACET 7.5/325MG TAB PO PRN (23:17)
[2022-05-18 05:00] VITALS: BP 128/68
[2022-05-18] MEDS: ceFAZolin 1GM/50ML 50 ML IV SCH ×3 (05:24→21:19)
[2022-05-18] MEDS: ACCU-CHEK COMFORT CURVE STRIP VI SCH ×4 (05:39→18:06)
[2022-05-18] MEDS: InsuLIN REG 1unit/0.01ml Soln (100units/ml) SC SCH ×4 (05:50→18:06)
[2022-05-18] MEDS: INSULIN LANTUS (GLARGINE) 1 /0.01ml (100units/ml) SC SCH ×2 (06:48→21:46)
[2022-05-18 07:15] LABS: Albumin 1.7 g/dL (3.4-5.0); Calcium 7.6 mg/dL (8.5-10.1); Potassium 3.7 mmol/L (3.5-5.1)
[2022-05-18 07:19] LABS: Bilirubin, Total 3.1 mg/dL (0.2-1.0); Total Protein 5.5 g/dL (6.4-8.2)
[2022-05-18 07:33] LABS: Basophils # (auto) 0 10 ^3/uL (0-0.2); Basophils % (auto) 0.4 % (0.0-2.0); Eosinophils # (auto) 0 10 ^3/uL (0-0.8); Eosinophils % (auto) 0.5 % (0.0-7.0); Hematocrit 40.4 % (36.0-46.0); Hemoglobin 13.8 g/dL (12.2-16.2); Lymphocytes # (auto) 0.6 10 ^3/uL (0.4-5.4); Lymphocytes % (auto) 8.7 % (10.0-50.0); Mean Corpuscular Hemoglobin 35.7 pg (28.0-32.0); Mean Corpuscular Hgb Conc. 34.1 g/dL (32.0-36.0); Mean Corpuscular Volume 104.6 fL (80.0-100.0); Monocytes # (auto) 0.5 10 ^3/uL (0-1.3); Monocytes % (auto) 6.9 % (0.0-12.0); Neutrophils # (auto) 6.2 10 ^3/uL (1.6-8.6); Neutrophils % (auto) 83.5 % (37.0-80.0); Nucleated Red Blood Cells % 0.1 %; Red Blood Cells 3.86 10^6/uL (4.0-5.20); Red Cell Distribution Width 19.2 % (11.8-14.3); White Blood Cell 7.4 10^3/uL (4.4-10.8)
[2022-05-18 09:00] VITALS: BP 121/73
[2022-05-18] MEDS: THIAMINE HCL 100 MG TAB PO SCH (09:27)
[2022-05-18] MEDS: predniSONE 20 MG TAB PO SCH (09:27)
[2022-05-18] MEDS: PANTOPRAZOLE 40 MG TAB PO SCH (09:27)
[2022-05-18] MEDS: LACTULOSE 20Gm/30ML SOLN PO SCH ×3 (09:27→21:19)
[2022-05-18] MEDS: SODIUM CHLOR 0.9% PF (SALINE LOCK) 10ML VIAL/SYR IV SCH ×2 (09:27→21:19)
[2022-05-18] MEDS ORDERED: SPIRONOLACTONE 25 MG TAB PO ONE (11:15)
[2022-05-18] MEDS ORDERED: FUROSEMIDE 40 MG TAB PO ONE (11:15)
[2022-05-18] MEDS: INSULIN LISPRO (HUMAN) 100 UNITS/ML ML SC SCH ×2 (11:30→18:05)
[2022-05-18] MEDS ORDERED: predniSONE 20 MG TAB PO SCH (12:00)
[2022-05-18] MEDS: Glucerna Carbsteady SHAKE Vanilla 8oz PO SCH ×2 (12:17→18:06)
[2022-05-18 13:00] VITALS: BP 118/72
[2022-05-18 17:12] VITALS: BP 125/70
[2022-05-19] MEDS: ACCU-CHEK COMFORT CURVE STRIP VI SCH ×5 (00:20→22:41)
[2022-05-19] MEDS: InsuLIN REG 1unit/0.01ml Soln (100units/ml) SC SCH ×3 (00:21→11:28)
[2022-05-19] MEDS: HYDROcodone-ACET 7.5/325MG TAB PO PRN (00:36)
[2022-05-19] MEDS: LACTULOSE 20Gm/30ML SOLN PO SCH ×3 (05:11→22:00)
[2022-05-19] MEDS: ceFAZolin 1GM/50ML 50 ML IV SCH ×3 (05:11→22:30)
[2022-05-19 05:32] LABS: Basophils # (auto) 0.1 10 ^3/uL (0-0.2); Basophils % (auto) 0.8 % (0.0-2.0); Eosinophils # (auto) 0.3 10 ^3/uL (0-0.8); Eosinophils % (auto) 3.1 % (0.0-7.0); Hematocrit 32.9 % (36.0-46.0); Hemoglobin 11.5 g/dL (12.2-16.2); Lymphocytes % (auto) 11.7 % (10.0-50.0); Mean Corpuscular Hemoglobin 36.2 pg (28.0-32.0); Mean Corpuscular Hgb Conc. 34.9 g/dL (32.0-36.0); Mean Corpuscular Volume 103.9 fL (80.0-100.0); Monocytes # (auto) 0.5 10 ^3/uL (0-1.3); Monocytes % (auto) 5.6 % (0.0-12.0); Neutrophils # (auto) 6.5 10 ^3/uL (1.6-8.6); Neutrophils % (auto) 78.8 % (37.0-80.0); Nucleated Red Blood Cells % 0.1 %; Red Blood Cells 3.17 10^6/uL (4.0-5.20); Red Cell Distribution Width 19.2 % (11.8-14.3); White Blood Cell 8.2 10^3/uL (4.4-10.8)
[2022-05-19 05:40] LABS: Albumin 1.6 g/dL (3.4-5.0); Calcium 7.4 mg/dL (8.5-10.1); Potassium 3.5 mmol/L (3.5-5.1)
[2022-05-19 05:42] LABS: BUN/Creatinine Ratio 30.8
[2022-05-19 05:44] LABS: Bilirubin, Total 2.6 mg/dL (0.2-1.0); Total Protein 5.2 g/dL (6.4-8.2)
[2022-05-19] MEDS: INSULIN LISPRO (HUMAN) 100 UNITS/ML ML SC SCH ×5 (06:52→23:00)
[2022-05-19] MEDS: INSULIN LANTUS (GLARGINE) 1 /0.01ml (100units/ml) SC SCH ×2 (06:53→22:00)
[2022-05-19 09:22] VITALS: BP 115/62
[2022-05-19] MEDS: PANTOPRAZOLE 40 MG TAB PO SCH (09:46)
[2022-05-19] MEDS: chlordiazePOXIDE HCL 25 MG CAP PO PRN ×2 (09:46→17:46)
[2022-05-19] MEDS: FUROSEMIDE 20 MG TAB PO SCH (09:46)
[2022-05-19] MEDS: THIAMINE HCL 100 MG TAB PO SCH (09:46)
[2022-05-19] MEDS: SODIUM CHLOR 0.9% PF (SALINE LOCK) 10ML VIAL/SYR IV SCH ×2 (09:47→22:40)
[2022-05-19] MEDS: predniSONE 20 MG TAB PO SCH (09:47)
[2022-05-19] MEDS: Glucerna Carbsteady SHAKE Vanilla 8oz PO SCH ×3 (09:47→18:48)
[2022-05-19] MEDS: SPIRONOLACTONE 25 MG TAB PO SCH (09:47)
[2022-05-19] MEDS ORDERED: QUEtiapine FUMARATE 25 MG TAB PO ONE (11:15)
[2022-05-19] MEDS ORDERED: QUEtiapine FUMARATE 25 MG TAB PO PRN (11:15)
[2022-05-19 13:00] VITALS: BP 102/68
[2022-05-19] MEDS ORDERED: DEXTROSE (50%) 50ML SYRG IV PRN ×2 (15:45→16:00)
[2022-05-19 17:00] VITALS: BP 130/76
[2022-05-19] MEDS ORDERED: ACCU-CHEK COMFORT CURVE STRIP VI SCH (17:00)
[2022-05-19 21:37] VITALS: BP 102/61
[2022-05-19] MEDS ORDERED: InsuLIN REG 1unit/0.01ml Soln (100units/ml) SC SCH (22:00)
[2022-05-20 05:00] VITALS: BP 119/65
[2022-05-20] MEDS: LACTULOSE 20Gm/30ML SOLN PO SCH ×3 (05:28→22:00)
[2022-05-20] MEDS: ACCU-CHEK COMFORT CURVE STRIP VI SCH ×4 (06:05→22:05)
[2022-05-20] MEDS: ceFAZolin 1GM/50ML 50 ML IV SCH ×3 (06:05→22:05)
[2022-05-20] MEDS: INSULIN LISPRO (HUMAN) 100 UNITS/ML ML SC SCH ×5 (06:13→22:22)
[2022-05-20 09:00] VITALS: BP 144/63
[2022-05-20] MEDS: PANTOPRAZOLE 40 MG TAB PO SCH (09:38)
[2022-05-20] MEDS: predniSONE 20 MG TAB PO SCH (09:38)
[2022-05-20] MEDS: chlordiazePOXIDE HCL 25 MG CAP PO PRN (09:38)
[2022-05-20] MEDS: THIAMINE HCL 100 MG TAB PO SCH (09:38)
[2022-05-20] MEDS: SODIUM CHLOR 0.9% PF (SALINE LOCK) 10ML VIAL/SYR IV SCH ×2 (09:38→22:05)
[2022-05-20] MEDS: FUROSEMIDE 20 MG TAB PO SCH (09:38)
[2022-05-20] MEDS: SPIRONOLACTONE 25 MG TAB PO SCH (09:38)
[2022-05-20] MEDS: Glucerna Carbsteady SHAKE Vanilla 8oz PO SCH ×3 (09:38→18:16)
[2022-05-20 13:00] VITALS: BP 100/55
[2022-05-20 17:00] VITALS: BP 125/68
[2022-05-20 22:05] VITALS: BP 125/67
[2022-05-20] MEDS: INSULIN LANTUS (GLARGINE) 1 /0.01ml (100units/ml) SC SCH (22:22)
[2022-05-21 05:00] VITALS: BP 131/75
[2022-05-21] MEDS: LACTULOSE 20Gm/30ML SOLN PO SCH ×3 (05:55→21:58)
[2022-05-21] MEDS: ceFAZolin 1GM/50ML 50 ML IV SCH ×3 (05:55→21:57)
[2022-05-21] MEDS: ACCU-CHEK COMFORT CURVE STRIP VI SCH ×4 (06:10→21:58)
[2022-05-21] MEDS: INSULIN LISPRO (HUMAN) 100 UNITS/ML ML SC SCH ×4 (06:23→22:08)
[2022-05-21] MEDS: Glucerna Carbsteady SHAKE Vanilla 8oz PO SCH ×3 (08:04→18:00)
[2022-05-21 09:00] VITALS: BP 108/65
[2022-05-21 09:46] LABS: BUN/Creatinine Ratio 25.9; Calcium 7.7 mg/dL (8.5-10.1); Potassium 3.5 mmol/L (3.5-5.1)
[2022-05-21] MEDS: predniSONE 20 MG TAB PO SCH (10:18)
[2022-05-21] MEDS: PANTOPRAZOLE 40 MG TAB PO SCH (10:19)
[2022-05-21] MEDS: SPIRONOLACTONE 25 MG TAB PO SCH (10:19)
[2022-05-21] MEDS: THIAMINE HCL 100 MG TAB PO SCH (10:20)
[2022-05-21] MEDS: FUROSEMIDE 20 MG TAB PO SCH (10:20)
[2022-05-21] MEDS: SODIUM CHLOR 0.9% PF (SALINE LOCK) 10ML VIAL/SYR IV SCH ×2 (10:21→21:57)
[2022-05-21 13:00] VITALS: BP 133/77
[2022-05-21 17:00] VITALS: BP 120/71
[2022-05-21] MEDS ORDERED: LORazepam 0.5 MG TAB PO PRN (21:00)
[2022-05-21 22:00] VITALS: BP 131/81
[2022-05-21] MEDS: INSULIN LANTUS (GLARGINE) 1 /0.01ml (100units/ml) SC SCH (22:08)
[2022-05-22 05:00] VITALS: BP 114/66
[2022-05-22] MEDS: ceFAZolin 1GM/50ML 50 ML IV SCH ×3 (06:30→23:50)
[2022-05-22] MEDS: ACCU-CHEK COMFORT CURVE STRIP VI SCH ×4 (06:38→23:52)
[2022-05-22] MEDS: INSULIN LISPRO (HUMAN) 100 UNITS/ML ML SC SCH ×6 (06:38→23:59)
[2022-05-22] MEDS: LACTULOSE 20Gm/30ML SOLN PO SCH ×3 (06:38→23:51)
[2022-05-22] MEDS: Glucerna Carbsteady SHAKE Vanilla 8oz PO SCH ×3 (08:00→18:19)
[2022-05-22 09:22] VITALS: BP 123/70
[2022-05-22] MEDS: SODIUM CHLOR 0.9% PF (SALINE LOCK) 10ML VIAL/SYR IV SCH ×2 (10:00→23:51)
[2022-05-22] MEDS: SPIRONOLACTONE 25 MG TAB PO SCH (11:09)
[2022-05-22] MEDS: THIAMINE HCL 100 MG TAB PO SCH (11:09)
[2022-05-22] MEDS: PANTOPRAZOLE 40 MG TAB PO SCH (11:09)
[2022-05-22] MEDS: FUROSEMIDE 20 MG TAB PO SCH (11:09)
[2022-05-22] MEDS: predniSONE 20 MG TAB PO SCH (11:10)
[2022-05-22] MEDS: ACETAMINOPHEN 325 MG TAB PO PRN (14:10)
[2022-05-22 14:25] VITALS: BP 135/76
[2022-05-22 17:49] VITALS: BP 105/59
[2022-05-22 21:50] VITALS: BP 111/66
[2022-05-23] MEDS: INSULIN LANTUS (GLARGINE) 1 /0.01ml (100units/ml) SC SCH ×2 (00:12→22:04)
[2022-05-23 05:00] VITALS: BP 129/75
[2022-05-23] MEDS: LACTULOSE 20Gm/30ML SOLN PO SCH ×4 (05:37→21:54)
[2022-05-23] MEDS: ceFAZolin 1GM/50ML 50 ML IV SCH ×4 (05:37→21:54)
[2022-05-23] MEDS: ACCU-CHEK COMFORT CURVE STRIP VI SCH ×4 (06:22→21:55)
[2022-05-23] MEDS: INSULIN LISPRO (HUMAN) 100 UNITS/ML ML SC SCH ×4 (06:27→22:04)
[2022-05-23 06:40] LABS: Calcium 7.5 mg/dL (8.5-10.1); Chloride 111 mmol/L (98-107); Potassium 3.9 mmol/L (3.5-5.1); Sodium 139 mmol/L (136-145)
[2022-05-23 06:43] LABS: Anion Gap 8 (5-15); BUN/Creatinine Ratio 18.5; Blood Urea Nitrogen 10 mg/dL (7-18); Carbon Dioxide 20 mmol/L (21-32); GFR African American 148 mL/min; GFR Non-African American 122 mL/min; Glucose 128 mg/dL (74-106)
[2022-05-23] MEDS: Glucerna Carbsteady SHAKE Vanilla 8oz PO SCH ×3 (08:00→17:05)
[2022-05-23 09:21] LABS: Hematocrit 38.2 % (36.0-46.0); Hemoglobin 13.3 g/dL (12.2-16.2); Mean Corpuscular Hemoglobin 36.7 pg (28.0-32.0); Mean Corpuscular Hgb Conc. 34.9 g/dL (32.0-36.0); Mean Corpuscular Volume 105.1 fL (80.0-100.0); Red Blood Cells 3.63 10^6/uL (4.0-5.20); Red Cell Distribution Width 19.3 % (11.8-14.3); White Blood Cell 7.7 10^3/uL (4.4-10.8)
[2022-05-23 09:24] LABS: Band Neutrophils % (manual) 0; Basophils % (manual) 0 (0.0-2.0); Blast Cells 0; Metamyelocytes % 0; Myelocytes % 0; Promyelocytes % 0; Reactive Lymphocytes 0
[2022-05-23] MEDS: SODIUM CHLOR 0.9% PF (SALINE LOCK) 10ML VIAL/SYR IV SCH ×2 (10:00→21:54)
[2022-05-23] MEDS ORDERED: LORazepam 0.5 MG TAB PO PRN (10:15)
[2022-05-23] MEDS ORDERED: FUROSEMIDE 40 MG/4 ML VIAL IV ONE (10:30)
[2022-05-23 11:18] LABS: Eosinophils % (manual) 5 (0-7); Lymphocytes % (manual) 14 (10.0-50.0); Monocytes % (manual) 6 (0-12)
[2022-05-23] MEDS: PANTOPRAZOLE 40 MG TAB PO SCH (12:15)
[2022-05-23] MEDS: SPIRONOLACTONE 25 MG TAB PO SCH (12:15)
[2022-05-23] MEDS: predniSONE 20 MG TAB PO SCH (12:15)
[2022-05-23] MEDS: THIAMINE HCL 100 MG TAB PO SCH (12:16)
[2022-05-23 13:00] VITALS: BP 129/69
[2022-05-23] MEDS: ACETAMINOPHEN 325 MG TAB PO PRN (15:03)
[2022-05-23 17:05] VITALS: BP 108/67
[2022-05-23 22:00] VITALS: BP 136/77
[2022-05-24] MEDS: LACTULOSE 20Gm/30ML SOLN PO SCH ×7 (02:20→22:41)
[2022-05-24 05:00] VITALS: BP 121/64
[2022-05-24] MEDS: ACCU-CHEK COMFORT CURVE STRIP VI SCH ×4 (06:38→21:54)
[2022-05-24] MEDS: INSULIN LISPRO (HUMAN) 100 UNITS/ML ML SC SCH ×4 (06:59→21:58)
[2022-05-24 08:00] VITALS: BP 105/55
[2022-05-24] MEDS: Glucerna Carbsteady SHAKE Vanilla 8oz PO SCH ×3 (08:00→18:00)
[2022-05-24] MEDS ORDERED: PANTOPRAZOLE 40 MG/10 ML VIAL INJ IV ONE (09:45)
[2022-05-24] MEDS: predniSONE 20 MG TAB PO SCH (10:03)
[2022-05-24] MEDS: SODIUM CHLOR 0.9% PF (SALINE LOCK) 10ML VIAL/SYR IV SCH ×2 (10:03→21:54)
[2022-05-24] MEDS: SPIRONOLACTONE 25 MG TAB PO SCH (10:04)
[2022-05-24] MEDS: THIAMINE HCL 100 MG TAB PO SCH (10:04)
[2022-05-24 11:40] LABS: Albumin 1.9 g/dL (3.4-5.0); Calcium 7.6 mg/dL (8.5-10.1); Potassium 3.4 mmol/L (3.5-5.1)
[2022-05-24 11:42] LABS: Bilirubin, Total 3.8 mg/dL (0.2-1.0); Total Protein 5.7 g/dL (6.4-8.2)
[2022-05-24 12:00] VITALS: BP 95/55
[2022-05-24 16:00] VITALS: BP 114/74
[2022-05-24] MEDS: INSULIN LANTUS (GLARGINE) 1 /0.01ml (100units/ml) SC SCH (21:57)
[2022-05-24 22:00] VITALS: BP 126/71
[2022-05-24] MEDS ORDERED: LORazepam 0.5 MG TAB PO SCH (22:00)
[2022-05-25] MEDS: LACTULOSE 20Gm/30ML SOLN PO SCH ×3 (01:58→08:49)
[2022-05-25 05:00] VITALS: BP 127/75
[2022-05-25] MEDS: INSULIN LISPRO (HUMAN) 100 UNITS/ML ML SC SCH (06:21)
[2022-05-25] MEDS: ACCU-CHEK COMFORT CURVE STRIP VI SCH (06:21)
[2022-05-25] MEDS: Glucerna Carbsteady SHAKE Vanilla 8oz PO SCH (08:00)
[2022-05-25 08:30] VITALS: BP 122/77
[2022-05-25] MEDS: predniSONE 20 MG TAB PO SCH (09:39)
[2022-05-25] MEDS: SPIRONOLACTONE 25 MG TAB PO SCH (09:39)
[2022-05-25] MEDS ORDERED: PANTOPRAZOLE 40 MG/10 ML VIAL INJ IV SCH (10:00)
[2022-05-25] MEDS: SODIUM CHLOR 0.9% PF (SALINE LOCK) 10ML VIAL/SYR IV SCH (10:00)
[2022-05-25] MEDS: THIAMINE HCL 100 MG TAB PO SCH (10:36)
[2022-05-25 12:30] VITALS: BP 163/74
[2022-05-25] MEDS ORDERED: LACTULOSE 20Gm/30ML SOLN PO SCH (14:00)
[2022-05-25] MEDS ORDERED: INSULIN LANTUS (GLARGINE) 1 /0.01ml (100units/ml) SC SCH (22:00)
[2022-05-26] MEDS ORDERED: predniSONE 5 MG TAB PO SCH (10:00)
== END 2022-05-25 15:20 | disposition hospice, home (50) | DRG 720 ==
LOC: EDBD 15:51 → ER 15:57 → ICU CENTRL 22:47 → ICU WEST 05-04 05:59 → TELE-CENTR 05-12 09:38 → CENTRAL 05-13 10:35 → TELE-CENTR 05-23 10:17 → CENTRAL 05-25 11:06
PROVIDERS: ADMIT Nurse Practitioner Family; ATTEND Student in an Organized Health Care Education/Training Program
PROC: 06HM33Z Insertion of Infusion Device into Right Femoral Vein, Percutaneous Approach (ICD-10-PCS; 2022-04-30)
PROC: 5A1955Z Respiratory Ventilation, Greater than 96 Consecutive Hours (ICD-10-PCS; principal; 2022-05-03)
PROC: 0BH17EZ Insertion of Endotracheal Airway into Trachea, Via Natural or Artificial Opening (ICD-10-PCS; 2022-05-03)
PROC: 02HV33Z Insertion of Infusion Device into Superior Vena Cava, Percutaneous Approach (ICD-10-PCS; 2022-05-04)
PROC: B548ZZA Ultrasonography of Superior Vena Cava, Guidance (ICD-10-PCS; 2022-05-04)
PROC: 05HA33Z Insertion of Infusion Device into Left Brachial Vein, Percutaneous Approach (ICD-10-PCS; 2022-05-12)
PROC: B54NZZA Ultrasonography of Left Upper Extremity Veins, Guidance (ICD-10-PCS; 2022-05-12)
DX: A41.01 Sepsis due to Methicillin susceptible Staphylococcus aureus (principal); J96.01 Acute respiratory failure with hypoxia; R65.21 Severe sepsis with septic shock; E11.00 Type 2 diabetes mellitus with hyperosmolarity without nonketotic hyperglycemic-hyperosmolar coma (NKHHC); J69.0 Pneumonitis due to inhalation of food and vomit; G93.41 Metabolic encephalopathy; N17.9 Acute kidney failure, unspecified; E11.10 Type 2 diabetes mellitus with ketoacidosis without coma; K70.40 Alcoholic hepatic failure without coma; N39.0 Urinary tract infection, site not specified; F10.231 Alcohol dependence with withdrawal delirium; E87.6 Hypokalemia; K76.82 Hepatic encephalopathy; K70.11 Alcoholic hepatitis with ascites; K70.31 Alcoholic cirrhosis of liver with ascites; I10 Essential (primary) hypertension; E83.42 Hypomagnesemia; E87.0 Hyperosmolality and hypernatremia; Z20.822 Contact with and (suspected) exposure to COVID-19; E87.1 Hypo-osmolality and hyponatremia; E44.0 Moderate protein-calorie malnutrition; K80.20 Calculus of gallbladder without cholecystitis without obstruction; D69.59 Other secondary thrombocytopenia; F12.90 Cannabis use, unspecified, uncomplicated; D68.4 Acquired coagulation factor deficiency; J90 Pleural effusion, not elsewhere classified; Z87.891 Personal history of nicotine dependence; Z91.14 Patient's other noncompliance with medication regimen; Z68.43 Body mass index [BMI] 50.0-59.9, adult
CPT/HCPCS: 36415; 36556; 36569; 36600; 70450; 71045; 76700; 76705; 80048; 80053; 80069; 80307; 81001; 82010; 82140; 82247; 82248; 82728; 82805; 82962; 83036; 83540; 83550; 83605; 83735; 83880; 84100; 84478; 84484; 85007; 85025; 85027; 85610; 85730; 86706; 86803; 87040; 87070; 87077; 87081; 87086; 87088; 87186; 87205; 87340; 87426; 92610; 93306; 93970; 94002; 94003; 94640; 96361; 96365; 96372; 97110; 97116; 97163; 97530; C9113; G0378; J0330; J0690; J0696; J1450; J1815; J2250; J2405; J2543; J3430; J3480; J3490; J7060; P9047